=== PATIENT | male | born 1980 | race Caucasian/White ===

== ENCOUNTER 2025-07-24 13:54 | Inpatient (IN) | payer OTHER, SELFPAY ==
[2025-07-24 14:11] VITALS: BP 102/80; PULSE 114; RESP 18; TEMP 36.3; O2SAT 99; BMI 19.6
--- NOTE | 2025-07-24 14:15 | ED_ITS ---
HPI - Psych General Chief Complaint: Psychiatric Symptoms Stated Complaint: psychosis , needs refill meds Time Seen by Provider: 07/24/25 16:07 Source: patient Mode of arrival: ambulatory Limitations: no limitations History of Present Illness ED Provider: Dr. Palmer HPI Narrative: A 44-year-old male history of psychosis presented hospital today for evaluation of auditory hallucinations. Patient stated that he has has run out medication. He has been taking Ativan and was recently admitted to inpatient psychiatric hospital in [place]. And discharge. He is out all of his medicine. He is coming to the ER to defer further assistance with his psychiatric illness at this time. He does endorse suicide ideation. And homicidal ideation from the auditory hallucinations. Related Data Home Medications ?Medication ?Instructions ?Recorded ?Confirmed benztropine 1 mg tablet 1 mg PO BID 07/24/25 5 cholecalciferol (vitamin D3) 25 25 mcg PO DAILY 07/25/25 mcg (1,000 unit) tablet (Vitamin D3) lorazepam 1 mg tablet 1 mg PO BID 07/24/25 5 lorazepam 2 mg tablet 2 mg PO BEDTIME 07/24/25 mirtazapine 45 mg tablet 45 mg PO BEDTIME 07/24/25 sennosides 8.6 mg tablet (senna) 8.6 mg PO BEDTIME 07/25/25 Allergies Allergy/AdvReac Type Severity Reaction Status Date / Time No Known Allergies Allergy Verified 07/24/25 14:13 Review of Systems 2 Review of Systems: Pertinent review of systems as mentioned in HPI. All other system otherwise negative. [facility] Past Medical History [facility] Narrative: Medical history as mentioned in HPI Social History Social History Smoked in Last 30 Days: No Use of substances other than those prescribed or required for medical reasons: No Advance Directives: No Advance Directives Information Provided: No Do you have a plan to hurt others: Clear Physical Exam 2 Exam: Exam: General: Pleasant, no distress, interacting appropriately Head: Normacephalic, atraumatic ENT: oral mucosa moist, neck supple, no tracheal deviation Cardiovascular: regular rate, regular rhythm, no murmurs, rubbing, gallops Respiratory: CTAB, no wheeze, rales, rhonchi Neurological: Awake and alert, no facial droop noted Skin: Warm and dry Psychiatric: Versus auditory hallucination endorses SI and HI. Vital Signs: Vital Signs: Last Vital Signs Temp 97.7 F 07/25/25 06:37 Pulse 66 07/25/25 06:37 Resp 17 07/25/25 06:37 BP 118/59 L 07/25/25 06:37 Pulse Ox 97 07/25/25 06:37 O2 Del Method Room Air 07/25/25 06:37 BMI result Body Mass Index 19.6 Course Course Course Narrative: This is a rapid medical exam performed by [place] NP: Additional HPI, ROS, PE not included below will be deferred to primary provider. Patient is a 44y/o M presenting to the ED with family who report that he ran out of his psych meds 2 days ago. Has been feeling paranoid, anxious, hearing voices, thinks people are going to hurt him. Denies SI/HI. Meds are melatonin, vitamin D, senna, lorazepam, and benztropine. These were prescribed to patient when he was admitted inpatient at [facility]. Plan: med clearance thenCARE eval Reevaluation(s) Reevaluation #1: Time: 07:04 Date: 07/25/25 Provider: Taryn Butt, DO Patient in physician observation for psychiatric evaluation.? No acute events reported overnight. No current complaints. VS stable.? Patient is in bed search status.. Will continue to monitor. Medications Administered Generic Name Dose Route Start Last Admin Trade Name Freq PRN Reason Stop Dose Admin Benztropine Mesylate 1 mg 07/25/25 09:45 07/25/25 11:32 Benztropine Mesylate 1 Mg Tablet PO 1 mg BID [place] Administration Vitamin D 25 mcg 07/25/25 09:45 07/25/25 11:32 Cholecalciferol (Vitamin D3) 25 Mcg Tablet PO 25 mcg DAILY [place] Administration Discontinued Medications Generic Name Dose Route Start Last Admin Trade Name Freq PRN Reason Stop Dose Admin Acetaminophen 975 mg 07/24/25 17:19 07/24/25 17:54 Acetaminophen 325 Mg Tablet PO 07/24/25 17:20 975 mg ONCE ONE Administration Lorazepam 1 mg 07/24/25 17:19 07/24/25 17:54 Lorazepam 1 Mg Tablet PO 07/24/25 17:20 1 mg ONCE ONE Administration Lorazepam 1 mg 07/25/25 09:45 07/25/25 11:32 Lorazepam 1 Mg Tablet PO 1 mg BID [place] Administration Melatonin 6 mg 07/24/25 20:35 07/24/25 20:48 Melatonin 3 Mg Tablet PO 07/24/25 20:36 6 mg ONCE ONE Administration Medical Decision Making Medical Decision Making [facility] Narrative: 44-year-old male history of psychosis presented hospital today for auditory hallucination with suicide ideation homicidal ideation We will plan to consult crisis team for the patient. Patient is medically clear from my standpoint. He is stable. Does not appear to be in acute distress on exam. Patient seen by crisis team. They recommended sectioning patient at this time due to suicide ideation and auditory hallucinations. Patient will be placed under section 12. Plan to hold the patient here until admission for inpatient psychiatric for further definitive care. Differential Diagnosis Differential Diagnoses: The differential diagnosis associated with the presentation includes Suicide ideation, visual hallucination, homicidal ideation, schizophrenia Consult Healthcare Provider Management of the patient was discussed with: Food General Manager (Crisis) Lab Data [facility] Lab Attestation statement: I reviewed the patient's lab results. 07/24/25 15:40 07/24/25 15:40 Labs: Lab Results 07/24/25 07/24/25 Range/Units 15:40 17:23 WBC 7.1 (4.8-10.8) X10*3/uL RBC 4.93 (4.60-5.80) X10*6/uL Hgb 15.9 (14.0-18.0) g/dl Hct 46.1 (42.0-52.0) % MCV 93.5 (80.0-98.0) fL MCH 32.3 (27.0-33.0) pg MCHC 34.5 (31.0-36.0) g/dl RDW 11.8 (11.0-16.0) % Plt Count 185 (160-400) X10*3/uL MPV 9.9 (9.4-12.4) fL Immature Gran % (Auto) 0.3 (0.0-0.4) % Neut % (Auto) 77.7 H (45-73) % Lymph % (Auto) 14.4 L (20-40) % [place] % (Auto) 6.9 (2-11) % Eos % (Auto) 0.3 (0-4) % Baso % (Auto) 0.4 (0-2) % Lymph # (Auto) 1.0 L (1.2-4.9) X10*3/uL [place] # (Auto) 0.5 (0.1-1.2) X10*3/uL Eos # (Auto) 0.0 (0.0-0.4) X10*3/uL Baso # (Auto) 0.0 (0.0-0.2) X10*3/uL Abs Immat Gran (auto) 0.02 (0.00-0.03) X10*3/uL Absolute Neuts (auto) 5.6 (2.0-8.3) x10*3/uL Absolute Nucleated RBC 0.000 (0.0-0.012) X10*3/uL Nucleated RBC % (auto) 0.0 (0.0-0.2) /100WBC Sodium 141 (135-145) mmol/L Potassium 4.0 (3.3-5.1) mmol/L Chloride 107 (96-108) mmol/L Carbon Dioxide 26 (22-29) mmol/L Anion Gap 12 (12-20) BUN 11 (9-16) mg/dL Creatinine 0.78 (0.5-1.4) mg/dL Estim Creat Clear Calc 113.3 Estimated GFR > 60 Random Glucose 112 (60-115) mg/dL Calcium 9.7 (8.4-10.2) mg/dL Total Bilirubin 1.0 (0.0-1.0) mg/dL AST 17 (5-37) U/L ALT 17 (0-40) U/L Alkaline Phosphatase 89 (39-117) U/L Total Protein 7.4 (6.5-8.0) g/dL Albumin 4.9 (3.5-5.0) g/dL Urine Color Yellow Urine Appearance Turbid Urine pH 7.5 (5.0-9.0) Ur Specific [place] 1.020 (1.005-1.025) Urine Protein 30 (1+) H (Neg-Trace) mg/dL Urine Glucose (UA) Negative (Negative) mg/dL Urine Ketones 40 (Negative) mg/dL Urine Blood Negative (Negative) Urine Nitrite Negative (Negative) Ur Leukocyte Esterase Small (1+) H (Negative) Urine RBC 0-2 (0-2) /HPF Urine WBC 6-10 H (0-5) /HPF Ur Squamous Epith Cells 3-5 (0-2) /HPF Urine Bacteria None Seen (None Seen) Hyaline Casts 6-10 (0-2) /LPF Granular Casts Present Urine Opiates Screen Not Detected (Not Detect) Ur Buprenorphine Scrn Not Detected (Not Detect) ng/mL Ur Oxycodone Screen Not Detected (Not Detect) ng/mL Urine Methadone Screen Not Detected (Not Detect) ng/mL Urine Fentanyl Screen Not Detected (Not Detect) Ur Barbiturates Screen Not Detected (Not Detect) Ur Phencyclidine Scrn Not Detected (Not Detect) Ur Amphetamines Screen Not Detected (Not Detect) U Benzodiazepines Scrn Not Detected (Not Detect) Urine Cocaine Screen Not Detected (Not Detect) U Marijuana (THC) Screen Not Detected (Not Detect) Ethyl Alcohol < 10 mg/dL COVID-19 ([facility]) Negative (Negative) COVID-19 Clin Com See Note Discharge Plan Discharge Clinical Impression: Acute psychosis, Suicidal ideation Patient Disposition: Admitted As Inpatient Interventions: [place]-Suicide Risk Severity Scale Last Done: 07/24/25 15:21 Admission Worksheet (ED) Last Done: 07/25/25 14:25
[2025-07-24 15:21] VITALS: BP 113/75; PULSE 88; RESP 21; O2SAT 95
[2025-07-24 15:48] LABS: MANUAL DIFF FLAG NO
[2025-07-24 15:51] LABS: Hematocrit 46.1 % (42.0-52.0); Hemoglobin 15.9 g/dl (14.0-18.0); Imm Gran Abs Auto 0.02 X10*3/uL (0.00-0.03); Imm Gran Pct Auto 0.3 % (0.0-0.4); Lymphocytes Absolute Auto 1.0 X10*3/uL (1.2-4.9); Mean Corpuscular HGB Conc 34.5 g/dl (31.0-36.0); Mean Corpuscular Hemoglobin 32.3 pg (27.0-33.0); Mean Corpuscular Volume 93.5 fL (80.0-98.0); NRBC Abs Auto 0.000 X10*3/uL (0.0-0.012); NRBC Pct Auto 0.0 /100WBC (0.0-0.2); Platelet Count 185 X10*3/uL (160-400); Red Blood Count 4.93 X10*6/uL (4.60-5.80); White Blood Count 7.1 X10*3/uL (4.8-10.8)
[2025-07-24 16:05] LABS: Alanine Aminotransferase 17 U/L (0-40); Albumin Level 4.9 g/dL (3.5-5.0); Alkaline Phosphatase 89 U/L (39-117); Anion Gap 12 (12-20); Aspartate Amino Transferase 17 U/L (5-37); Blood Urea Nitrogen 11 mg/dL (9-16); Calcium 9.7 mg/dL (8.4-10.2); Carbon Dioxide 26 mmol/L (22-29); Chloride 107 mmol/L (96-108); Creatinine Clr Calc Pharmacy 113.3; Estimated Glomerular Filt Rate > 60; Potassium 4.0 mmol/L (3.3-5.1); Sodium 141 mmol/L (135-145); Total Protein 7.4 g/dL (6.5-8.0)
[2025-07-24 16:06] LABS: COVID-19 Test Negative (Negative); IDNOW Serial# 55D5AD1C
--- NOTE | 2025-07-24 17:15 | PC.NURSE ---
Pt c/o headache at 08/18. Requesting pain medication.
[2025-07-24 17:59] VITALS: BP 128/75; PULSE 97; RESP 51; TEMP 36.6; O2SAT 96
[2025-07-24 18:07] LABS: Appearance Urine Turbid; Glucose Urine UA Negative (Negative); PH 7.5 (5.0-9.0); Specific Gravity - Urine 1.020 (1.005-1.025); UMIC TRIGGER UACC YES
[2025-07-24 18:19] LABS: Cannabinoid Screen Urine Not Detected (Not Detect); UACC Culture Trigger YES
--- NOTE | 2025-07-24 18:46 | PC.NURSE ---
Pt reports headache now 02/16
--- NOTE | 2025-07-24 20:18 | PC.NURSE ---
Assumed care of this patient upon transfer from the main. Patient able to walk into room with steady gait. No needs made known at this time.
[2025-07-24 20:45] VITALS: BP 114/60; PULSE 73; RESP 16; TEMP 36.3; O2SAT 97
--- NOTE | 2025-07-24 20:46 | PC.NURSE ---
Addendum entered by Sharri Ingram RN 07/24/25 20:50: provider Dr. Palmer made aware, awaiting orders. Original Note: Med rec done w/ external med refill and confirmation by patient. Patient states he ran out of all meds 3 days ago and hasn't taken any since which is part of the reason he is in the ED today.
--- OUTSIDE RECORDS SUMMARY | 2025-07-24 21:14 | XMS_ITS | Clinical Summary ---
Author Organization [facility] Address [address] [place] [id number] Phone Care Team Providers Care Motor Coach Supervisor Name Role Phone Pcp, Unknown Primary Care Provider Unavailabl e Allergies Active Allergy Reactions Criticality Noted Date Comments Aripiprazole Dystonia High 06/22/2025 Medications * This document contains information received from the source organization and may not represent a complete record from that organization. lithium (LITHOBID) 450 MG ER tablet Take 1 tablet (450 mg total) by mouth 2 (two) times a day. 28 tablet 07/07/20 25 Active mirtazapine (REMERON) 45 MG tablet Take 1 tablet (45 mg total) by mouth nightly at bedtime. 14 tablet 07/07/20 25 Active benztropine (COGENTIN) 1 MG tablet Take 1 tablet (1 mg total) by mouth 2 (two) times a day. 28 tablet 07/07/20 25 Active cholecalciferol (VITAMIN D3) 25 MCG (1,000 unit) tablet Take 1 tablet (1,000 Units total) by mouth daily. 14 tablet 07/07/20 25 Active risperiDONE (RISPERDAL-M) 3 MG disintegrating tablet Take 1 tablet (3 mg total) by mouth 2 (two) times a day. 28 tablet 07/07/20 25 Active melatonin 5 mg Tab Take 1 tablet (5 mg total) by mouth nightly at bedtime. 14 tablet 07/07/20 25 Active senna (SENOKOT) 8.6 mg tablet Take 1 tablet by mouth nightly at bedtime. 14 tablet 07/07/20 25 Active LORazepam (ATIVAN) 1 MG tablet Take 1 tablet (1 mg total) by mouth 2 (two) times a day. 28 tablet 07/07/20 25 Active LORazepam (ATIVAN) 2 MG tablet Take 1 tablet (2 mg total) by mouth nightly at bedtime. 14 tablet 07/07/20 25 Active ARIPiprazole (ABILIFY) 20 MG tablet Take 20 mg by mouth every morning. 025 Discontinued(St op Taking at Discharge) lithium (LITHOBID) 450 MG ER tablet Take 450 mg by mouth 2 (two) times a day. 025 Discontinued clonazePAM (KLONOPIN) 2 MG tablet Take 2 mg by mouth 2 (two) times a day. 1/ tab AM 1 tab bed 025 Discontinued(St op Taking at Discharge) mirtazapine (REMERON) 45 MG tablet Take 45 mg by mouth nightly at bedtime. 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 Date Type Department Care Team Description 06/19/2025 Procedure Pass [facility], Ct Scan - [address] [address] from Last 3 Months Social History Tobacco Use Types Packs/Day Years Used Date Smoking Tobacco: Never Passive Smoke Exposure: Never Smokeless Tobacco: Never Alcohol Use Standard Drinks/Week Comments Not Currently 0 (1 standard drink = 0.6 oz pur e alcohol) Education Answer Date Recorded Are you interested in more education? Not on christiane e 06/17/2025 Are you concerned about learning? Not on file 06/17/2025 No 06/17/2025 No 06/17/2025 Food Answer Date Recorded Within the past 6 months we worried whether our food would run out before we got money to buy more. I choose not to answer 06/18/2025 Within the past 6 months the food we bought just didn't last and we didn't have enough money to get more. I choose not to answer 06/18/2025 Residential Stability Answer Date Recor ded What is your housing situation today? I choose n ot to answer 06/18/2025 How many times have you move d in the past 12 months? I choose not to answer 06/18/2025 Paying for Meds Answer Date Recorded Do you have trouble paying for medicines? I blair not to answer 06/18/2025 Paying Utility Bills Answer Date Record ed Do you have trouble paying y our heating or electricity bill? I choose not to answer 06/18/2025 Transportation Answer Date Recorded Has the lack of transportati on kept you from medical appointments or from getting medications? I choose not to answer 06/18/2025 Digital Access Answer Date Recorded No 06/18/2025 No 06/18/2025 Do you have reliable internet access at home? I choose not to answer 06/18/2025 Do you have a device (e.g., phone, tablet, computer) with a working camera? I choose not to answer 06/18/2025 Intimate Partner Violence Answer Date R ecorded Are you denied basic needs s uch as food, clothing, or medical care? No 06/20/2025 In the past 12 months have y ou been in a relationship with a person who hurts, threatens, or tries to control you? No 06/20/2025 Are you denied basic needs s uch as food, clothing, or medical care? No 06/20/2025 In the past 12 months have y ou been in a relationship with a person who hurts, threatens, or tries to control you? No 06/20/2025 Sex and Gender Information Value Date Recorded Sex Assigned at Male 06/17/2025 10:51 PM EDT Legal Sex Male 10:49 PM EDT Gender Identity Male 06/17/2025 10:51 PM EDT Sexual Orientation Straight 06/17/2025 10 :51 PM EDT Last Filed Vital Signs Vital Sign Reading Time Taken Comments Blood Pressure 111/80 07/07/2025 8:00 AM EDT Pulse 123 07/07/2025 8:00 AM EDT Temperature 36.2 C (97.2 F) 07/07/2025 8:00 AM EDT Respiratory Rate 16 07/06/2025 3:50 PM EDT Oxygen Saturation 98% 07/07/2025 8:00 AM EDT Inhaled Oxygen Concentration - - Weight 67.1 kg (148 lb) 07/02/2025 9:33 PM EDT Height 188 cm (6' 2.02 ) 07/02/2025 9:33 PM EDT Body Mass Index 18.99 07/02/2025 9:33 PM EDT Plan of Treatment Health Maintenance Due Date Last Done Comments Adult Td,Tdap Booster 1981 DEPRESSION SCREENING 1993 HEPATITIS C SCREENING 1999 HIV ONE-TIME SCREENING (18-65 YEARS) 1999 INFLUENZA VACCINE (#1) 2025 COVID-19 VACCINE ( - 2023- season) 2025 TSH LEVEL 06/21/2026 06/21/2025 LITHIUM LEVEL 06/23/2026 06/23/2025 CREATININE LEVEL 06/27/2026 06/27/2025, , 06/19/2025, Additional history exists LIPID PANEL 06/21/2030 06/21/2025 SMOKING STATUS SCREENING (Once After 26 Yrs) Completed 06/20/2025 HEPATITIS A VACCINES Aged Out No long er eligible based on patient's age to complete this topic HIB VACCINES Aged Out No longer eligi ble based on patient's age to complete this topic MENINGOCOCCAL VACCINES (ACWY) Aged Out No longer eligible based on patient's age to complete this topic MENINGOCOCCAL VACCINES (B) Aged Out N o longer eligible based on patient's age to complete this topic PNEUMOCOCCAL VACCINES (0-49 years) Aged Out No longer eligible based on patient's age to complete this topic Medical Devices Not on file Procedures Procedure Name Priority Date/Time Associated Diagnosis Comments COMPREHENSIVE METABOLIC PANEL Routine 06/27/2025 8:34 AM EDT LITHIUM LEVEL Timed 06/23/2025 8:52 AM EDT CPK (CREATINE KINASE) Routine 06/23/2025 8:52 AM EDT COMPREHENSIVE METABOLIC PANEL Routine 06/23/2025 8:52 AM EDT 25-OH VITAMIN D Routine 06/21/2025 7:24 AM EDT HEMOGLOBIN A1C Routine 06/21/2025 7:24 AM EDT LIPID PANEL Routine 06/21/2025 7:24 AM EDT FOLATE Routine 06/21/2025 7:24 AM EDT TSH WITH REFLEX Routine 06/21/2025 7:24 AM EDT VITAMIN B12 Routine 06/21/2025 7:24 AM EDT POCT GLUCOSE Routine 06/19/2025 5:[address] HEAD WITHOUT CONTRAST Routine 06/19/2025 3:21 PM EDT CPK (CREATINE KINASE) STAT 06/19/2025 2:54 PM EDT MAGNESIUM STAT 06/19/2025 2:54 PM EDT LFTS (HEPATIC PANEL) STAT 06/19/2025 2:54 PM EDT BASIC METABOLIC PANEL STAT 06/19/2025 2:54 PM EDT CBC AND DIFFERENTIAL STAT 06/19/2025 2:54 PM EDT ECG 12-LEAD STAT 06/19/2025 2:32 PM EDT POCT GLUCOSE Routine 06/19/2025 12:03 PM EDT POCT GLUCOSE Routine 06/19/2025 7:03 AM EDT POCT GLUCOSE Routine 06/18/2025 8:49 PM EDT ETHANOL, BLOOD STAT 06/17/2025 11:12 PM EDT LFTS (HEPATIC PANEL) STAT 06/17/2025 11:12 PM EDT BASIC METABOLIC PANEL STAT 06/17/2025 11:12 PM EDT CBC AND DIFFERENTIAL STAT 06/17/2025 11:12 PM EDT from Last 3 Months Results * (ABNORMAL) Comprehensive metabolic panel (06/27/2025 8:34 AM EDT) Only the most recent of2 resultswithin the time period is included. SODIUM 139 133 - 146 mmol/L [facility] POTASSIUM 4.0 3.3 - 5.1 mmol/L [facility] CHLORIDE 103 96 - 108 mmol/L [facility] CO2 27 21 - 35 mmol/L [facility] BUN 11 6 - 19 mg/dL [facility] CREATININE 0.80 0.5 - 1.5 mg/dL [facility] GLUCOSE 107(H) 70 - 99 mg/dL [facility] ALBUMIN 4.1 3.9 - 4.8 g/dL [facility] TOTAL PROTEIN 6.6 6.5 - 8.0 g/dL [facility] CALCIUM 9.1 8.4 - 10.3 mg/dL [facility] ALKALINE PHOSPHATASE 74 39 - 117 U/L [facility] TOTAL BILIRUBIN 0.6 0.0 - 1.2 mg/dL [facility] AST 12 0 - 37 U/L [facility] ALT 11 0 - 40 U/L [facility] GLOBULIN 2.5 1 - 4.8 g/dL [facility] EGFR 113 >59 mL/min/1.7 3m2 [facility] Comment:Estimated glomerular filtration rate calculated using the CKD-EPI refit equation. ANION GAP 13 10 - 20 mmol/L [facility] Blood 06/27/2025 8:34 AM EDT 06/27/2025 8:57 AM EDT us Scott Morel MD LAB BLOOD ORDERABLES Final Resu lt [facility] [address] [place] [address] * (ABNORMAL) CPK (creatine kinase) (06/23/2025 8:52 AM EDT) Only the most recent of2 resultswithin the time period is included. CREATINE KINASE 253(H) 35 - 232 U/L [facility] Blood 06/23/2025 8:52 AM EDT 06/23/2025 8:59 AM EDT Abby Davis MD LAB BLOOD ORDERABLES Final Re sult Performing Organization Address City/[facility]/ZIP Co de Phone Number [address] [address] * [place] level (06/23/2025 8:52 AM EDT) Pathologist [facility] LITHIUM 0.68 0.5 - 1.00 mmol/L [facility] Blood 06/23/2025 8:52 AM EDT 06/23/2025 8:59 AM EDT Abby Davis MD LAB BLOOD ORDERABLES Final Re sult Performing Organization Address [facility]/ZIP Co de Phone Number [address] [address] * TSH with reflex (06/21/2025 7:24 AM EDT) Pathologist [facility] TSH 1.18 0.27 - 4.20 uIU/mL [facility] Blood 06/21/2025 7:24 AM EDT 06/21/2025 7:44 AM EDT Jonny David PMHNP-BC LAB BLOOD ORDERABLES Lillian l Result Performing Organization Address [facility] Co de Phone Number [address] [address] * (ABNORMAL) 25-OH vitamin D (06/21/2025 7:24 AM EDT) 25 OH VIT D (TOTAL) 21(L) 30 - 60 ng/mL [facility] Blood 06/21/2025 7:24 AM EDT 06/21/2025 7:44 AM EDT us Jonny David PMHNP-BC LAB BLOOD ORDERABLES Lillian l Result Performing Organization Address City/[facility] Co de Phone Number [address] [address] * Hemoglobin A1c (06/21/2025 7:24 AM EDT) HEMOGLOBIN A1C 4.4 4.3 - 5.8 % [facility] Blood 06/21/2025 7:24 AM EDT 06/21/2025 7:44 AM EDT us Jonny David PMHNP- LAB BLOOD ORDERABLES Lillian l Result Performing Organization Address [facility] Co de Phone Number [address] [address] * Folate (06/21/2025 7:24 AM EDT) FOLIC ACID 13.0 4.2 - 19.9 ng/mL [facility] Blood 06/21/2025 7:24 AM EDT 06/21/2025 7:44 AM EDT us Jonny David PMHNP-BC LAB BLOOD ORDERABLES Lillian l Result Performing Organization Address [facility] Co de Phone Number [address] [address] * Vitamin B12 (06/21/2025 7:24 AM EDT) VITAMIN B12 294 232 - 1,245 pg/mL [facility] Blood 06/21/2025 7:24 AM EDT 06/21/2025 7:44 AM EDT us Jonny David PMHNP-BC LAB BLOOD ORDERABLES Lillian l Result Performing Organization Address City/[facility] Co de Phone Number [address] [address] * Lipid panel (06/21/2025 7:24 AM EDT) HDL 48 mg/dL [facility] Comment: Interpretation <40 mg/dL: Low HDL cholesterol (major risk factor for CHD) Greater than or equal to 60 mg/dL: High HDL cholesterol ( negative risk factor for CHD) HDL - cholesterol is affected by a number of factors, e.g. smoking, excerise, hormones, sex and age. CHOLESTEROL 167 0 - 240 mg/dL [facility] TRIGLYCERIDES 80 30 - 160 mg/dL [facility] LDL 103 50 - 129 mg/dL [facility] Comment: LDL levels in terms of risk for coronary heart disease: <100 mg/dL: Optimal 100-129 mg/dL: Near or above optimal 130-159 mg/dL: Borderline high 160-189 mg/dL: High >190 mg/dL: Very High CARDIAC RISK RATIO 3.5 3.4 - 5.0 C [facility] Blood 06/21/2025 7:24 AM EDT 06/21/2025 7:43 AM EDT us Jonny David [facility]- LAB BLOOD ORDERABLES Lillian l Result Performing Organization Address [facility] Co de Phone Number [address] [address] * POCT Glucose (06/19/2025 5:30 PM EDT) Only the most recent of4 resultswithin the time period is included. Glucose, POCT 92 70 - 100 mg/dL [facility] 06/19/2025 5:30 PM EDT 06/19/2025 5:35 PM EDT us Abdirizak Davison MD POINT OF CARE TEST ORDER ROBEL Final Result Performing Organization Address [facility] Co de Phone Number [address] [address] * CT HEAD WITHOUT CONTRAST (06/19/2025 3:21 PM EDT) Anatomical Region Laterality Modality Head Computed Tomogra phy 06/19/2025 3:30 PM EDT Impressions 06/19/2025 4:02 PM EDT No acute intracranial findings. ATTESTATION: Tito Byrd as teaching physician, have reviewed the images for this case and if necessary edited the report originally created by Jose Diaz. Narrative 06/19/2025 4:[address] HEAD WITHOUT CONTRAST Referring clinician's provided indication for this examination in [facility]: * Mental status change, unknown cause TECHNIQUE: CT of the head was performed without intravenous contrast using tailored dose modulation techniques. Images were reconstructed in the axial, coronal, and sagittal planes. COMPARISON: None. FINDINGS: Brain Parenchyma: No midline shift, mass effect, parenchymal hemorrhage, or evidence of acute territorial infarct. Ventricular System and Extra-Axial Spaces: No extra-axial fluid collections. Basal cisterns are patent. No hydrocephalus. Osseous and Extracranial Structures: No calvarial fracture or significant soft tissue hematoma. No significant paranasal sinus disease. No orbital abnormality. Procedure Note Tito Chappell MD - 06/19/2025 CT HEAD WITHOUT CONTRAST Referring clinician's provided indication for this examination in Epic: *Mental status change, unknown cause TECHNIQUE: CT of the head was performed without intravenous contrast usingtailored dose modulation techniques. Images were reconstructed in theaxial, coronal, and sagittal planes. COMPARISON: None. FINDINGS: Brain Parenchyma: No midline shift, mass effect, parenchymal hemorrhage,or evidence of acute territorial infarct. Ventricular System and Extra-Axial Spaces: No extra-axial fluidcollections. Basal cisterns are patent. No hydrocephalus. Osseous and Extracranial Structures: No calvarial fracture or significantsoft tissue hematoma. No significant paranasal sinus disease. No orbitalabnormality. IMPRESSION: No acute intracranial findings. ATTESTATION: Tito Byrd as teaching physician, have reviewed theimages for this case and if necessary edited the report originally createdby Jose Diaz. us Soco Rodriguez PA-C IMG CT HEAD/NECK Lillian l Result * (ABNORMAL) LFTs (hepatic panel) (06/19/2025 2:54 PM EDT) Only the most recent of2 resultswithin the time period is included. ALKALINE PHOSPHATASE 105 39 - 117 U/L [facility] TOTAL BILIRUBIN 1.2 0.0 - 1.2 mg/dL [facility] DIRECT BILIRUBIN 0.4(H) 0.0 - 0.2 mg/dL [facility] Bilirubin (Indirect) 0.8 0 - 1.5 mg/dL [facility] AST 35 0 - 37 U/L [facility] ALT 26 0 - 40 U/L [facility] TOTAL PROTEIN 7.7 6.5 - 8.0 g/dL [facility] ALBUMIN 4.9(H) 3.9 - 4.8 g/dL [facility] GLOBULIN 2.8 1 - 4.8 g/dL [facility] A/G Ratio 1.75 1.00 - 4.80 RATIO [facility] Blood 06/19/2025 2:54 PM EDT 06/19/2025 2:56 PM EDT us Soco Rodriguez PA-C LAB BLOOD ORDERABLES Final Result [address] [address] * (ABNORMAL) CBC and differential (06/19/2025 2:54 PM EDT) Only the most recent of2 resultswithin the time period is included. WBC 9.07 4.00 - 11.00 K/uL [facility] RBC 4.59 4.50 - 5.90 M/uL [facility] HGB 14.6 13.5 - 17.5 g/dL [facility] HCT 45.1 41.0 - 53.0 % [facility] PLT 233 150 - 450 K/uL [facility] MCV 98.3 80.0 - 100.0 fL [facility] MCH 31.8(H) 27.0 - 31.0 pg [facility] MCHC 32.4 32.0 - 36.0 g/dL [facility] RDW 12.0 11.5 - 14.5 % [facility] MPV 10.0 8.4 - 12.0 fL [facility] NRBC 0.00 0.00 /100 WBCs [facility] ABSOLUTE NRBC 0.00 0.00 K/uL [facility] DIFF METHOD Auto [facility] NEUTS 68.2 48.0 - 76.0 % [facility] LYMPHS 20.7 18.0 - 41.0 % [facility] MONOS 9.6 4.0 - 11.0 % [facility] EOS 0.6 0.0 - 5.0 % [facility] BASOS 0.7 0.0 - 1.5 % [facility] Granulocytes, immature (%) 0.2 0.0 - 0.9 % [facility] ABSOLUTE NEUTS 6.19 1.92 - 7.60 K/uL [facility] ABSOLUTE LYMPHS 1.88 0.72 - 4.10 K/uL [facility] ABSOLUTE MONOS 0.87 0.16 - 1.10 K/uL [facility] ABSOLUTE EOS 0.05 0.00 - 0.50 K/uL [facility] ABSOLUTE BASOS 0.06 0.00 - 0.15 K/uL [facility] Granulocytes, immature 0.02 0.00 - 0.09 K/uL [facility] Blood 06/19/2025 2:54 PM EDT 06/19/2025 2:56 PM EDT Soco Rodriguez PA-C LAB BLOOD ORDERABLES Final Result [facility] [address] [place] [address] * Magnesium (06/19/2025 2:54 PM EDT) MAGNESIUM 2.3 1.6 - 2.6 mg/dL [facility] Blood 06/19/2025 2:54 PM EDT 06/19/2025 2:56 PM EDT Soco Rodriguez PA-C LAB BLOOD ORDERABLES Final Result Performing Organization Address [facility] Co de Phone Number [address] [address] * (ABNORMAL) Basic metabolic panel (06/19/2025 2:54 PM EDT) Only the most recent of2 resultswithin the time period is included. SODIUM 140 133 - 146 mmol/L [facility] CHLORIDE 101 96 - 108 mmol/L [facility] POTASSIUM 4.3 3.3 - 5.1 mmol/L [facility] CO2 24 21 - 35 mmol/L [facility] BUN 20(H) 6 - 19 mg/dL [facility] CREATININE 0.90 0.5 - 1.5 mg/dL [facility] GLUCOSE 96 70 - 99 mg/dL [facility] CALCIUM 9.7 8.4 - 10.3 mg/dL [facility] EGFR 109 >59 mL/min/1.7 3m2 [facility] Comment:Estimated glomerular filtration rate calculated using the CKD-EPI refit equation. ANION GAP 19 10 - 20 mmol/L [facility] Blood 06/19/2025 2:54 PM EDT 06/19/2025 2:56 PM EDT Soco Rodriguez PA-C LAB BLOOD ORDERABLES Final Result Performing Organization Address [facility]/ZIP Co de Phone Number [address] [address] * ECG 12-LEAD (06/19/2025 2:32 PM EDT) Ventricular Rate EKG/MIN 73 BPM [facility] Atrial Rate [address] [facility] [address] Interval 130 ms [facility] QRS Duration 80 ms [facility] QT Interval 434 ms [facility] QTC Interval 478 ms [facility] P [place] 28 degrees [facility] R Wave [place] 66 degrees [facility] T Wave [place] 65 degrees [facility] 06/19/2025 2:32 PM EDT 06/21/2025 6:00 PM EDT Narrative [facility] - 06/21/2025 6:00 PM EDT Normal sinus rhythm Normal ECG No previous ECGs available Confirmed by Sukhi MORRELL ([id number]) on 06/21/2025 6:00:17 PM us Soco Rodriguez PA-C ECG ORDERABLES Final Result [facility] * Ethanol, blood (06/17/2025 11:12 PM EDT) ETHANOL <10 <10 mg/dL [facility] Blood 06/17/2025 11:1 2 PM EDT 06/17/2025 11:21 PM EDT us Denilson Maldonado MD LAB BLOOD ORDERABLES Final Result [facility] [address] [place] [address] from Last 3 Months Insurance [address] [place] [id number] [place] [address] ACO ACO ACO [facility] ACO [address] [place] [address] [facility] ACO Advance Directives For more information, please contact: [phone] (9AM - 5PM [facility], Thursday-Thursday) * Full Code (Latest Code Status on File) Date Activated Date Inactivated Comments 06/20/2025 2:21 PM Question Answer Comments Code Status Confirmed With: Patient Care Teams Motor Coach Supervisor Relationship Specialty Start Date End Date Pcp, Unknown PCP - General 06/17/25 Additional Source Comments The information contained in this document represents components of the legal health record. It is not the complete legal health record.[facility]
--- OUTSIDE RECORDS SUMMARY | 2025-07-24 21:14 | XMS_ITS | Encounter Summary ---
Author Organization [facility] Address [address] [place] [address] Phone Care Team Providers Care Denture Contour Wire Specialist Name Role Phone Pcp, Unknown Primary Care Provider Unavailabl e Encounter Details Date Type Department Care Team ([facility] st Contact Info) Description 06/19/2025 Procedure Pass [facility], Ct Scan - [address] [address] Social History Tobacco Use Types Packs/Day Years Used Date Smoking Tobacco: Never Smokeless Tobacco: Never Alcohol Use Standard [...] have trouble paying for medicines? I blair se not to answer 06/18/2025 Paying Utility Bills [...] Orientation Straight 06/17/2025 10 :51 PM EDT documented as of this encounter Plan of Treatment Not on file documented as of this encounter Visit Diagnoses Not on filedocumented in this encounter Care Teams Denture Contour Wire Specialist Relationship Specialty Start Date End Date Pcp, Unknown PCP - General 06/17/25 documented as of this encounter Additional Source Comments The information contained in this document represents components of the legal health record. It is not the complete legal health record.[facility]
[2025-07-25 06:37] VITALS: BP 118/59; PULSE 66; RESP 17; TEMP 36.5; O2SAT 97
--- NOTE | 2025-07-25 07:10 | PC.NURSE ---
Assumed care, report received. Pt is currently sleeping, safety maintained.
--- NOTE | 2025-07-25 10:36 | ECG_ITS ---
Test Reason : R/O PROLONGED QT Blood Pressure : */* mmHG Vent. Rate : 64 BPM Atrial Rate : 64 BPM P-R Int : 146 ms QRS Dur : 92 ms QT Int : 416 ms P-R-T Axes : 53 70 62 degrees QTcB Int : 429 ms Normal sinus rhythm Normal ECG No previous ECGs available Referred By: Taryn Butt Electronically Signed By: REED RAYO
--- NOTE | 2025-07-25 13:32 | PHA.MEDREC ---
Addendum entered by Teto Pennington PharmD 07/25/25 13:43: reviewed Original Note: Pharmacy Consult ? Medication Reconciliation Pharmacy has reviewed the medication reconciliation done by nursing. Claims match med list.
[2025-07-25 15:23] VITALS: BP 115/65; PULSE 80; RESP 16; TEMP 36.7; O2SAT 98
[2025-07-25 15:24] VITALS: BMI 19.3
--- NOTE | 2025-07-25 17:05 | PC.ADMIT ---
44year old male admitted from ED Pod with SI and AVH. Pt stated he believes people are out to kill me! He confirms he hears voices to hurt himself, and also confirms he sees shadows . He stated he ran out of medications but cannot confirm medication names. He stated he was last hospitalized at [facility] in June with similar indications. Pt is currently homeless but staying with his mom in [place]. His also lives with him and his mother. He is A&O x 3. Calm and cooperative. Reported anxiety /, depression 8/. He contracted to alert staff with any intention to harm oneself or others. He denies HI. Tox screen negative in ED. Pt denied any ETOH or substance use. Pt reports he has no primary care or psychiatric care. He does have a therapist at [facility].
[2025-07-25 19:55] VITALS: BP 100/57; PULSE 60; RESP 16; TEMP 36.4; O2SAT 98
[2025-07-26 08:00] VITALS: BP 138/62; PULSE 69; RESP 18; TEMP 36.3; O2SAT 99
--- NOTE | 2025-07-26 08:22 | HO.PM.IMCN ---
History of Present Illness Data of Consult Service Date: 07/26/25 Primary Care Provider: Alejandro Stark CNP [facility] Reason for consult: Medical management 44-year-old male with a past medical history of psychosis, presented to the hospital with auditory hallucinations. He ran out of meds and since then he has been paranoid, anxious, hearing voices and thinks people are going to hurt him. In the ED his CBC revealed no leukocytosis or anemia, no evidence of liver or renal impairment, urinalysis was negative, U tox screen was negative, COVID was negative, alcohol level less than 10. EKG with normal sinus rhythm. Patient agreed to this engineering technical writer by stating ?I want to ? he denies any medical concerns. Denies any shortness of breath, chest pain, dizziness lightheadedness or any other concerning symptoms. Review of Systems Review of Systems: Denies any shortness of breath, chest pain, dizziness, lightheadedness, abdominal pain or discomfort, nausea vomiting or diarrhea PMFSH Social History Household Members: Spouse and Family Household Members Other:: Mom and his at his mom's apartment in [place] Housing: Apartment Do you presently have visiting nurse or other home services: No Patient Tobacco Use Status: Never used Tobacco Smoked in Last 30 Days: No Use of substances other than those prescribed or required for medical reasons: No Currently Displaying Signs/Symptoms of Drug Intoxication Withdrawal: No Have you been hit, kicked, punched, or otherwise hurt by someone within the past year? If so, by whom?: No Do you feel safe in your current relationship?: Yes Is there a partner from a previous relationship who is making you feel unsafe now?: No Are you made to feel afraid or neglected: No Advance Directives: No Advance Directives Information Provided: No Do you have thoughts of harming others: None Do you have a plan to hurt others: No Plan Recently lost weight without trying: Unsure Meds Allergies Allergy/AdvReac Type Severity Reaction Status Date / Time No Known Allergies Allergy Verified 07/24/25 14:13 Active Medications: Current Medications Acetaminophen (Acetaminophen 325 Mg Tablet) 650 mg PO Q6H PRN PRN Reason: Headache/Pain, Scale 1-10 Al Hydroxide/Mg Hydroxide (Magnesium Hydrox/Alum Hydrox 30 Ml Oral.Susp) 30 ml PO Q6H PRN PRN Reason: Heartburn/Nausea Benztropine Mesylate (Benztropine Mesylate 1 Mg Tablet) 1 mg PO BID [facility] Last Admin: 07/26/25 08:14 Dose: 1 mg Hydroxyzine HCl (Hydroxyzine Hcl 25 Mg Tablet) 25 mg PO Q6H PRN PRN Reason: mild anxiety Last Admin: 07/25/25 16:49 Dose: 25 mg Lorazepam (Lorazepam 1 Mg Tablet) 2 mg PO BEDTIME [facility] Last Admin: 07/25/25 21:12 Dose: 2 mg Magnesium Hydroxide (Milk Of Magnesia 30 Ml Oral.Susp) 30 ml PO DAILY PRN PRN Reason: Constipation Mirtazapine (Mirtazapine 15 Mg Tablet) 45 mg PO BEDTIME [facility] Last Admin: 07/25/25 21:13 Dose: 45 mg Nicotine Polacrilex (Nicotine Polacrilex 2 Mg Gum) 4 mg BUCCAL Q2H PRN PRN Reason: Nicotine Cravings Senna (Sennosides 8.6 Mg Tablet) 8.6 mg PO BEDTIME [facility] Last Admin: 07/25/25 21:13 Dose: 8.6 mg Trazodone HCl (Trazodone Hcl 50 Mg Tablet) 50 mg PO BEDTIME MRX1 PRN PRN Reason: Insomnia Vitamin D (Cholecalciferol (Vitamin D3) 25 Mcg Tablet) 25 mcg PO DAILY [facility] Last Admin: 07/26/25 08:14 Dose: 25 mcg Home Medications ?Medication ?Instructions ?Recorded ?Confirmed ?Last Taken ?Type benztropine 1 mg tablet 1 mg PO BID 07/24/25 07/25/25 07/22/25 History cholecalciferol (vitamin D3) 25 25 mcg PO DAILY 07/24/25 07/25/25 07/22/25 History mcg (1,000 unit) tablet (Vitamin D3) lorazepam 1 mg tablet 1 mg PO BID 07/24/25 07/25/25 07/22/25 History lorazepam 2 mg tablet 2 mg PO BEDTIME 07/24/25 07/25/25 07/22/25 History mirtazapine 45 mg tablet 45 mg PO BEDTIME 07/24/25 07/25/25 07/22/25 History sennosides 8.6 mg tablet (senna) 8.6 mg PO BEDTIME 07/24/25 07/25/25 07/22/25 History Physical Exam Vital Signs and Narrative: Vital Signs: Last Vital Signs Temp 97.6 F 07/25/25 19:55 Pulse 60 07/25/25 19:55 Resp 16 07/25/25 19:55 BP 100/57 L 07/25/25 19:55 Pulse Ox 98 07/25/25 19:55 O2 Del Method Room Air 07/25/25 19:55 BMI result Body Mass Index 19.3 General: Flat affect, quiet, laying in bed in NAD. Head: Normacephalic, atraumatic ENT: oral mucosa moist, neck supple, MMM Cardiovascular: regular rate, regular rhythm Respiratory: LS clear, No wheeze. Neurological: CN II-XII Intact bilaterally, Sensation intact. Speech clear Skin: Warm and dry Psychiatric: Endorses SI Results Labs 07/24/25 15:40 07/26/25 08:43 Assessment and Plan (1) Depression: Status: Acute Plan 44 year old with past medical history of PTSD , severe depression, anxiety suicidal ideation and acute psychosis presented to ED for evaluation of auditory hallucinations, patient reports that he ran out of his medications. He is admitted here for further care. PTSD /depression/anxiety/suicidal ideations/acute psychosis Treatment per psychiatric team Elevated cholesterol Recommend diet and exercise Follow up with PCP Thank you for allowing me to participate in the care of this patient. Will follow as needed, please notify medical provider with any changes in condition or concerns.
[2025-07-26 09:05] LABS: Hemoglobin A1C 111.5590 umol/L; Total Hemoglobin (HGBA1C) 4129.3909 umol/L
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
[2025-07-26 09:11] LABS: Alanine Aminotransferase 16 U/L (0-40); Albumin Level 5.0 g/dL (3.5-5.0); Alkaline Phosphatase 90 U/L (39-117); Anion Gap 14 (12-20); Aspartate Amino Transferase 16 U/L (5-37); Blood Urea Nitrogen 18 mg/dL (9-16); Calcium 9.8 mg/dL (8.4-10.2); Carbon Dioxide 28 mmol/L (22-29); Chloride 106 mmol/L (96-108); Cholesterol 201 mg/dL (<200); Creatinine Clr Calc Pharmacy 92.7; Estimated Glomerular Filt Rate > 60; HDL Cholesterol 49 mg/dL (>40); Potassium 4.1 mmol/L (3.3-5.1); Sodium 144 mmol/L (135-145); Total Protein 7.4 g/dL (6.5-8.0); Triglycerides 78 mg/dL (<150)
[2025-07-26 15:52] LABS: Lithium < 0.10 mmol/L (0.60-1.20)
[2025-07-26 16:02] LABS: Thyroid Stimulating Hormone 0.97 uIU/mL (0.32-4.0)
[2025-07-26 20:00] VITALS: BP 114/60; PULSE 62; RESP 16; TEMP 37; O2SAT 97
[2025-07-27 07:00] VITALS: BMI 19.3
[2025-07-27 08:00] VITALS: BP 133/71; PULSE 60; RESP 16; TEMP 36.4; O2SAT 97
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
[2025-07-27] MEDS: Milk of Magnesia 30 ML ORAL.SUSP PO (09:45)
[2025-07-27 20:00] VITALS: BP 122/68; PULSE 66; TEMP 36.8; O2SAT 97
--- NOTE | 2025-07-27 21:55 | PC.NURSE ---
Patient stated he had SI, and showed this policy writer sales a pair of scrub pants that he had tied in a knot. He planned to tie this around his neck. Provider was contacted and patient has been placed on 1 to 1.
[2025-07-28 08:06] VITALS: BP 119/76; PULSE 68; TEMP 36.9; O2SAT 98
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
[2025-07-28 20:00] VITALS: BP 105/62; PULSE 61; RESP 16; TEMP 36.8; O2SAT 98
[2025-07-29 08:00] VITALS: BP 110/59; PULSE 69; TEMP 36.8; O2SAT 97
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
[2025-07-29 19:39] VITALS: BP 121/77; PULSE 69; RESP 16; TEMP 36.4; O2SAT 98
[2025-07-30 08:00] VITALS: BP 102/55; PULSE 72; TEMP 36.4; O2SAT 98
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
[2025-07-30] MEDS: ARIPiprazole 30 MG TABLET PO (09:19)
[2025-07-30 19:58] VITALS: BP 125/75; PULSE 81; RESP 15; TEMP 2.7; TEMP 36.9; O2SAT 97
[2025-07-30] MEDS: Butalb/Acetamin/Caff 50/325/40 TABLET 1 TAB PO (21:29)
[2025-07-31 08:38] VITALS: BP 119/67; PULSE 75; TEMP 36.3; O2SAT 98
[2025-07-31 20:00] VITALS: TEMP 36.8
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
[2025-08-01 08:00] VITALS: BP 149/66; RESP 16; TEMP 36.6; O2SAT 98
[2025-08-01 20:00] VITALS: BP 120/95; PULSE 107; RESP 16; TEMP 36.7; O2SAT 99
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
[2025-08-02 09:10] VITALS: BP 128/68; PULSE 77; TEMP 36.8; O2SAT 99
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
[2025-08-02 19:41] VITALS: BP 128/88; PULSE 88; RESP 16; TEMP 36.3; O2SAT 99
[2025-08-03 08:00] VITALS: BP 136/91; PULSE 85; RESP 16; TEMP 35.9; O2SAT 93
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
[2025-08-03 20:00] VITALS: BP 136/79; PULSE 106; RESP 16; TEMP 36.2; O2SAT 99
[2025-08-03 20:44] VITALS: BP 136/79
[2025-08-03] MEDS: OLANZapine 7.5 MG TABLET 15 MG PO (20:45)
[2025-08-04 08:00] VITALS: BP 94/59; PULSE 91; RESP 16; TEMP 36.5; O2SAT 96
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
[2025-08-04 20:00] VITALS: BP 127/64; PULSE 106; RESP 15; TEMP 36.4; O2SAT 98
[2025-08-04] MEDS: OLANZapine 7.5 MG TABLET 15 MG PO (20:37)
[2025-08-04] MEDS: Milk of Magnesia 30 ML ORAL.SUSP PO (20:41)
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
[2025-08-05 08:00] VITALS: BP 125/79; PULSE 110; RESP 16; TEMP 36.5; O2SAT 99
[2025-08-05 19:54] VITALS: BP 122/63; PULSE 91; RESP 15; TEMP 36.6; O2SAT 98
[2025-08-05] MEDS: OLANZapine 7.5 MG TABLET 15 MG PO (20:18)
[2025-08-06 07:56] VITALS: BP 128/80; PULSE 102; RESP 18; TEMP 36.5; O2SAT 98
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
[2025-08-06 19:41] VITALS: BP 110/64; PULSE 133; RESP 18; TEMP 36.3; O2SAT 100
[2025-08-06] MEDS: OLANZapine 7.5 MG TABLET 15 MG PO (20:58)
[2025-08-07 08:00] VITALS: BP 106/58; PULSE 77; RESP 16; TEMP 2.3; TEMP 36.1; O2SAT 99
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
== END 2025-08-07 11:14 | disposition home or self-care (01) | DRG 754 ==
LOC: HO.ED 20:13 → HO.PM5 07-25 14:10
PROVIDERS: Registered Nurse Emergency; Admitting Provider Registered Nurse; Emergency Provider Student in an Organized Health Care Education/Training Program; PCP Nurse Practitioner Family; Visit Provider Clinical Nurse Specialist Psychiatric/Mental Health, Adult
DX: F32.A Depression, unspecified (principal); R45.851 Suicidal ideations; F23 Brief psychotic disorder; E78.00 Pure hypercholesterolemia, unspecified; F41.9 Anxiety disorder, unspecified; F43.10 Post-traumatic stress disorder, unspecified; Z20.822 Contact with and (suspected) exposure to COVID-19; Z79.899 Other long term (current) drug therapy
CPT/HCPCS: 36415; 80048; 80053; 80061; 80178; 80307; 81001; 83036; 84443; 85025; 87086; 87635; 93005; 99285; S9485

== ENCOUNTER → 2025-07-25 10:36 | Outpatient (BNV) | payer OTHER, SELFPAY | PROVIDERS: Admitting Provider Registered Nurse; Emergency Provider Student in an Organized Health Care Education/Training Program; PCP Nurse Practitioner Family; Visit Provider Internal Medicine | DX: Z13.6 Encounter for screening for cardiovascular disorders (principal) | CPT/HCPCS: 93010 ==

== ENCOUNTER → 2025-07-25 14:04 | Outpatient (BNV) | payer OTHER, SELFPAY | PROVIDERS: Admitting Provider Registered Nurse; Emergency Provider Student in an Organized Health Care Education/Training Program; PCP Nurse Practitioner Family; Visit Provider Nurse Practitioner Family | DX: F32.A Depression, unspecified (principal) | CPT/HCPCS: 99221 ==

== ENCOUNTER → 2025-07-25 14:04 | Outpatient (BNV) | payer OTHER, SELFPAY | PROVIDERS: Admitting Provider Registered Nurse; Emergency Provider Student in an Organized Health Care Education/Training Program; PCP Nurse Practitioner Family; Visit Provider Nurse Practitioner Family | DX: F23 Brief psychotic disorder (principal); R45.851 Suicidal ideations; F41.9 Anxiety disorder, unspecified; F32.A Depression, unspecified; F43.10 Post-traumatic stress disorder, unspecified | CPT/HCPCS: 90792; 99232 ==